=== PATIENT | female | born 2005 | race Caucasian/White ===

== ENCOUNTER 2024-02-04 18:18 | Emergency (ER) | payer BC, SELFPAY ==
[2024-02-04 18:33] VITALS: BP 122/66; PULSE 62; RESP 18; TEMP 36.5; O2SAT 100
--- NOTE | 2024-02-04 18:38 | ED.GENADULT ---
HPI - General Adult General Chief complaint: Skin/Abscess/Foreign Body Stated complaint: REQUESTING A TEST FOR LYME DISEASE Time Seen by Provider: 02/04/24 18:25 Source: patient Mode of arrival: ambulatory Limitations: no limitations History of Present Illness HPI narrative: This is a 18-year-old female who presents to the ED with chief complaint of rash to right lower leg. She has been on a 5 day canoeing trip with her friends. She reports someone saw a take and she has concern for possible Lyme disease due to the nature of the rash. She also reports some general malaise, headache and sinus congestion. Denies fevers, chills, nausea, vomiting. Related Data Allergies Allergy/AdvReac Type Severity Reaction Status Date / Time mold Allergy Wheezing Verified 02/04/24 18:38 ragweed pollen Allergy Wheezing Verified 02/04/24 18:38 Review of Systems Review of Systems: All systems as dictated in HPI Exam Narrative: GENERAL: Well-appearing, well-nourished, and in no acute distress. Nontoxic appearing HEAD: Normocephalic, atraumatic. EYES: PERRLA and EOMI. ENT: Nares clear, no rhinorrhea or epistaxis. Mucous membranes moist. Oropharynx without tonsillar hypertrophy exudate or other lesions. NECK: Supple. No adenopathy or masses. CHEST: No respiratory distress. Clear to auscultation. No wheezes rales or rhonchi HEART: Regular rate and rhythm. No murmur heard. Normal peripheral pulses. ABDOMEN: Soft, nontender, nondistended, normal active bowel sounds. MSK: Normal range of motion. No edema. SKIN: Target like rash to the right lower extremity, anterior pappas. It is about 4 cm in diameter. No further rash or lesions. No involvement of palms or soles of feet. NEURO: Alert and oriented x3. No focal deficits. PSYCH: Normal mood and affect. Course Vital Signs Vital signs: Vital Signs Temperature 97.7 F 02/04/24 18:33 Pulse Rate 62 02/04/24 18:33 Respiratory Rate 18 02/04/24 18:33 Blood Pressure 122/66 02/04/24 18:33 Pulse Oximetry 100 02/04/24 18:33 Oxygen Delivery Room Air 02/04/24 18:33 Temperature 97.7 F 02/04/24 18:33 Pulse Rate 62 02/04/24 18:33 Respiratory Rate 18 02/04/24 18:33 Blood Pressure 122/66 02/04/24 18:33 Pulse Oximetry 100 02/04/24 18:33 Oxygen Delivery Room Air 02/04/24 18:33 Medical Decision Making MDM Narrative Medical decision making narrative: This is a 18-year-old female who presents to the ED with chief complaint of rash to the pappas and is concerned for tick-borne illness after being in the [place] for multiple days. Vitals are normal. Exam does show likely target rash to the right pappas anteriorly. No evidence of systemic disease. She will be started on doxycycline b.i.d. for 10 days. She is requesting serology be sent to the lab so blood work was drawn today. Pt will be discharged in stable condition. Return precautions given and supportive measures discussed. Pt is understanding and agreeable with plan for discharge and follow-up with PCP. Vital Signs Vital Signs: Vital Signs Temperature 97.7 F 02/04/24 18:33 Pulse Rate 62 02/04/24 18:33 Respiratory Rate 18 02/04/24 18:33 Blood Pressure 122/66 02/04/24 18:33 Pulse Oximetry 100 02/04/24 18:33 Oxygen Delivery Room Air 02/04/24 18:33 Temperature 97.7 F 02/04/24 18:33 Pulse Rate 62 02/04/24 18:33 Respiratory Rate 18 02/04/24 18:33 Blood Pressure 122/66 02/04/24 18:33 Pulse Oximetry 100 02/04/24 18:33 Oxygen Delivery Room Air 02/04/24 18:33 Discharge Plan Discharge Clinical Impression: Target rash Patient Disposition: Home, Self-Care Condition: Stable Instructions: Antibiotic Form Additional Instructions: Your exam today shows possible target rash which is consistent with early Lyme disease due to take bite. Please take antibiotics as prescribed. The lab was will be sent out. Follow-up with regular doctor. If you have any
[2024-02-08 15:33] LABS: Lyme Disease Ab (IgM), Blot NEGATIVE (NEGATIVE); Lyme Disease Ab(IgG), Blot NEGATIVE (NEGATIVE)
== END 2024-02-04 19:08 | disposition home or self-care (01) ==
PROVIDERS: Emergency Provider Physician Assistant
DX: R21 Rash and other nonspecific skin eruption (principal)
CPT/HCPCS: 36415; 86617; 99283